=== PATIENT | male | born 1990 | race Caucasian/White ===

== ENCOUNTER 2017-11-09 22:17 | Emergency (ER) | payer SELFPAY ==
[~2017-11-09] VITALS: Ht 175.3 cm; Wt 55.1 kg
[2017-11-09 23:58] VITALS: BP 133/96
== END 2017-11-09 23:58 | disposition home or self-care (01) ==
LOC: EME 22:17
DX: F41.9 Anxiety disorder, unspecified (principal); Z02.79 Encounter for issue of other medical certificate; F17.200 Nicotine dependence, unspecified, uncomplicated
CPT/HCPCS: 99281; 99284